=== PATIENT | male | born 1960 | race Caucasian/White ===

== ENCOUNTER 2018-06-12 10:08 | Emergency (ER) | payer MEDICARE, MEDICAID ==
[~2018-06-12] VITALS: Ht 180.3 cm; Wt 70.5 kg
[2018-06-12 10:20] VITALS: BP 117/88; Ht 180.3 cm; Wt 70.5 kg
[2018-06-12] MEDS ORDERED: LISINOPRIL10 MG PO (10:21)
== END 2018-06-12 16:00 ==
LOC: D.ER 10:08 → EDSEX 10:08 → D.ER 16:00
DX: N50.812 Left testicular pain (principal); N50.1 Vascular disorders of male genital organs; R10.30 Lower abdominal pain, unspecified; I10 Essential (primary) hypertension; M50.30 Other cervical disc degeneration, unspecified cervical region; F17.200 Nicotine dependence, unspecified, uncomplicated

== ENCOUNTER 2018-09-09 11:01 | Emergency (ER) | payer MEDICARE ==
[~2018-09-09] VITALS: Ht 180.3 cm; Wt 69.5 kg
[~2018-09-09 11:01] MED LIST: LISINOPRIL10 MG PO
[2018-09-09 11:07] VITALS: BP 141/89; Ht 180.3 cm; Wt 69.5 kg
== END 2018-09-09 12:27 | disposition left against medical advice (07) ==
LOC: D.ER 11:01
DX: M54.2 Cervicalgia (principal)

== ENCOUNTER 2018-09-11 11:24 | Emergency (ER) | payer OTHER, MEDICARE ==
[~2018-09-11] VITALS: Ht 180.3 cm; Wt 72.3 kg
[2018-09-11 11:42] VITALS: BP 122/87; Ht 180.3 cm; Wt 72.3 kg
== END 2018-09-11 17:00 | disposition left against medical advice (07) ==
LOC: D.ER 11:24
DX: M54.2 Cervicalgia (principal)

== ENCOUNTER 2018-10-26 11:19 | Inpatient (IN) | payer OTHER, MEDICAID ==
[~2018-10-26] VITALS: Ht 180.3 cm; Wt 68.2 kg
[2018-10-26 11:45] LABS: BASOPHILS 0.4 % (0-2); HEMATOCRIT 26.1 % (42.0-54.0); HEMOGLOBIN 8.4 g/dL (13.5-17.5); IMMATURE GRANULOCYTES 0.3 % (0-5); LYMPHOCYTES 10.6 % (15-50); MCH 29.7 pg (26.0-34.0); MCHC 32.2 g/dL (31.0-37.0); MCV 92.2 fL (80.0-100.0); MEAN PLATELET VOLUME 8.1 fL (7.4-10.4); MONOCYTES 7.6 % (2-11); NEUTROPHILS 80.1 % (40-80); PLATELET COUNT 782 10x3/uL (130-400); RBC 2.83 10x6/uL (4.20-6.10); RDW 13.9 % (11.5-14.5); WBC 7.7 10x3/uL (4.8-10.8)
--- NOTE | 2018-10-26 11:45 | NUR ---
HEMOCCULT= NEGATIVE. EDP, DENIS INFORMED.
--- NOTE | 2018-10-26 11:54 | NUR ---
PT DRINKING CONTRAST FOR CT SCAN
[2018-10-26 11:58] LABS: APPEARANCE CLEAR (CLEAR); BILIRUBIN NEGATIVE (NEGATIVE); COLOR STRAW (YELLOW); GLUCOSE NEGATIVE (NEGATIVE); KETONE NEGATIVE (NEGATIVE); NITRITE NEGATIVE (NEGATIVE); PROTEIN NEGATIVE (NEGATIVE); SPECIFIC GRAVITY 1.015 (1.005-1.020); UROBILINOGEN NORMAL (NORMAL)
[2018-10-26 12:01] LABS: ALBUMIN 2.9 g/dL (3.4-5.0); ALKALINE PHOSPHATASE 229 U/L (46-116); ALT (SGPT) 28 U/L (10-68); BILIRUBIN - TOTAL 0.32 mg/dL (0.2-1.3); CALC OSMOLALITY 264 mosm/kg (275-300); CALCIUM 9.2 mg/dL (8.5-10.1); CARBON DIOXIDE 29.1 mmol/L (21.0-32.0); CHLORIDE - SERUM 95 mmol/L (98-107); CREATININE - SERUM 0.6 mg/dL (0.6-1.3); GLUCOSE 175 mg/dL (74-106); LIPASE 60 U/L (73-393); POTASSIUM - SERUM 4.6 mmol/L (3.5-5.1); PROTEIN - SERUM 6.4 g/dL (6.4-8.2); SODIUM 130 mmol/L (136-145); UREA NITROGEN 12 mg/dL (7-18); eGFR NON AFRICAN AMERICAN > 90 mL/min (90-120)
--- NOTE | 2018-10-26 13:11 | NUR ---
PT TO RADIOLOGY AT THIS TIME.
--- NOTE | 2018-10-26 13:47 | NUR ---
PT RETURNED FROM RADIOLOGY AT THIS TIME.
[2018-10-26 13:55] VITALS: BP 153/90
[2018-10-26 15:39] LABS: APTT 27.7 SECONDS (22.8-39.4); INR 1.03 (0.85-1.17); PROTIME 10.7 SECONDS (11.6-15.0)
--- NOTE | 2018-10-26 15:45 | NUR ---
ASSISTED PT WITH URINAL; 1000 ML OF CLEAR, STRAW COLORED URINE AT THIS TIME
--- NOTE | 2018-10-26 15:45 | NUR ---
ATTEMPTED TO CALL REPORT; NURSE UNAVAILABLE AT THIS TIME.
--- NOTE | 2018-10-26 16:18 | NUR ---
REPORT CALLED TO BHAVNA CHERRY ON FLOOR, AND TOLD HER BLOOD IS READY IN BLOOD BANK. JO ANN ACKNOWLEDGES UNDERSTANDING.
[2018-10-26] MEDS ORDERED: NEURONTIN600 MG PO (17:50)
[2018-10-26 19:35] VITALS: BP 155/99; Ht 180.3 cm; Wt 68.2 kg
[2018-10-26 21:02] VITALS: BP 170/97
[2018-10-27 00:43] VITALS: BP 163/90
--- NOTE | 2018-10-27 04:07 | NUR ---
NO TELEMETRY TO PLACE ON PT.
--- NOTE | 2018-10-27 04:08 | NUR ---
UNIT 1 OF 2 OF BLOOD COMPLET WITH NO S/S OF REACTION. UNIT 2 RUNNING AT THIS TIME.
[2018-10-27 05:00] VITALS: BP 160/80
[2018-10-27 08:09] VITALS: BP 173/103
--- NOTE | 2018-10-27 09:27 | NUR ---
PT LYING IN BED, STATED HIS PAIN IS AT A 10 ADMINISTERED PRN PAIN MED, PT UPSET DUE TO PROTOCOL OF DILUTING AND STATED I DID NOT ADMINISTER TO HIM, HAD [place] KAY COME AND EXPLAIN TO PT PROTOCOL FOR PUSHING IV PAIN MEDS. CL IN REACH CONTINUE WITH PLAN OF CARE
[2018-10-27 10:24] LABS: BASOPHILS 0.5 % (0-2); EOSINOPHILS 1.2 % (0-7); HEMATOCRIT 32.3 % (42.0-54.0); HEMOGLOBIN 10.7 g/dL (13.5-17.5); IMMATURE GRANULOCYTES 0.2 % (0-5); LYMPHOCYTES 10.4 % (15-50); MCHC 33.1 g/dL (31.0-37.0); MCV 90.5 fL (80.0-100.0); MEAN PLATELET VOLUME 8.1 fL (7.4-10.4); MONOCYTES 12.7 % (2-11); PLATELET COUNT 726 10x3/uL (130-400); RBC 3.57 10x6/uL (4.20-6.10); RDW 13.8 % (11.5-14.5); WBC 6.6 10x3/uL (4.8-10.8)
[2018-10-27 10:43] LABS: ALBUMIN 2.9 g/dL (3.4-5.0); ALKALINE PHOSPHATASE 231 U/L (46-116); ALT (SGPT) 26 U/L (10-68); BILIRUBIN - TOTAL 0.36 mg/dL (0.2-1.3); CALC OSMOLALITY 269 mosm/kg (275-300); CALCIUM 9.3 mg/dL (8.5-10.1); CARBON DIOXIDE 29.6 mmol/L (21.0-32.0); CHLORIDE - SERUM 99 mmol/L (98-107); CREATININE - SERUM 0.6 mg/dL (0.6-1.3); GLUCOSE 142 mg/dL (74-106); POTASSIUM - SERUM 4.4 mmol/L (3.5-5.1); PROTEIN - SERUM 6.3 g/dL (6.4-8.2); SODIUM 135 mmol/L (136-145); UREA NITROGEN 8 mg/dL (7-18); eGFR NON AFRICAN AMERICAN > 90 mL/min (90-120)
--- NOTE | 2018-10-27 12:00 | NUR ---
PT REQUESTED PAIN MEDICATION STATED ACROSS ABDOMEN AND HIPS ARE HURTING REALLY BAD, ADMINISTERED PRN PAIN MEDS, CL IN EACH CONTINUE WITH PLAN OF CARE
[2018-10-27 12:09] VITALS: BP 177/107
--- NOTE | 2018-10-27 12:16 | NUR ---
RESTING QUIETLY IN BED. NO BM REPORTED FOR TODAY. DENIES NEEDS.
--- NOTE | 2018-10-27 15:33 | NUR ---
PT JUST HAD 1MG OF DILAUDID STATES IT DOES NOT WORK FOR HIM HE HAS BEEN CRYING AND YELLING OUT THE DOOR, ADVISED PT I WILL TALK WITH ASP NET PROGRAMMER ON FLOOR AND LET HER KNOW. PT STATED HE RECIEVED 40 OF OXY AND IV PAIN MED AT OTHER HOSPITAL, ADVISED PT IT IS UP TO DOCOTR AND DOCTOR IS AWARE OF PTS PAIN AND THAT YELLING IS NOT GOING TO GET IT TO HIM FASTER, CONTINUE WITH PLAN OF CARE
--- NOTE | 2018-10-27 17:01 | NUR ---
PT LYING IN BED ON CL, STATES HE IS IN EXCRUCIATING PAIN AND WANTS THE DOCTOR NOW. ADVISED PT DOCTOR IS ON THE FLOOR AND WILL MAKE HIS ROUNDS. PT HAD DILAUDID AT 1500, PERCOCET AT 1530 AND STATES STILL HURTS, WILL RELAY MESSAGE TO
--- NOTE | 2018-10-27 17:27 | NUR ---
PT IS YELLING DOWN HALLWAY FOR PAIN MEDICINE, ADVISED PT TO QUIET DOWN DUE TO OTHER PATIENTS AROUND HIM, ADVISED VP PATIENT OF PT'S BEHAVIOR, PER MACKENZIE HOOKER IS ON THE FLOOR AND MAKING ROUNDS, ADVISED PT
--- NOTE | 2018-10-27 17:52 | NUR ---
PT ON CL AGAIN FOR PAIN MEDS, SANG ADVISED PT WAITING ON XRAY RESULTS, UNABLE TO GIVE PT PAIN MEDS S IT IS TOO EARLY. CONTINUE WITH PLAN OF CARE
[2018-10-27 20:00] VITALS: BP 164/95
[2018-10-28 06:36] VITALS: BP 98/59
[2018-10-28 07:41] LABS: BASOPHILS 0.3 % (0-2); EOSINOPHILS 1.6 % (0-7); HEMATOCRIT 32.9 % (42.0-54.0); IMMATURE GRANULOCYTES 0.1 % (0-5); LYMPHOCYTES 15.7 % (15-50); MCH 30.2 pg (26.0-34.0); MCHC 33.4 g/dL (31.0-37.0); MCV 90.4 fL (80.0-100.0); MEAN PLATELET VOLUME 8.5 fL (7.4-10.4); MONOCYTES 14.1 % (2-11); NEUTROPHILS 68.2 % (40-80); PLATELET COUNT 700 10x3/uL (130-400); RBC 3.64 10x6/uL (4.20-6.10); RDW 14.2 % (11.5-14.5); WBC 6.8 10x3/uL (4.8-10.8)
[2018-10-28 07:56] LABS: ALBUMIN 2.9 g/dL (3.4-5.0); ALKALINE PHOSPHATASE 224 U/L (46-116); ALT (SGPT) 23 U/L (10-68); BILIRUBIN - TOTAL 0.29 mg/dL (0.2-1.3); CALC OSMOLALITY 269 mosm/kg (275-300); CALCIUM 9.6 mg/dL (8.5-10.1); CARBON DIOXIDE 29.2 mmol/L (21.0-32.0); CHLORIDE - SERUM 101 mmol/L (98-107); CREATININE - SERUM 0.6 mg/dL (0.6-1.3); GLUCOSE 101 mg/dL (74-106); MAGNESIUM - SERUM 1.8 mg/dL (1.8-2.4); POTASSIUM - SERUM 3.6 mmol/L (3.5-5.1); PROTEIN - SERUM 6.2 g/dL (6.4-8.2); SODIUM 136 mmol/L (136-145); UREA NITROGEN 7 mg/dL (7-18); eGFR NON AFRICAN AMERICAN > 90 mL/min (90-120)
[2018-10-28 08:24] VITALS: BP 154/85
[2018-10-28 12:49] VITALS: BP 160/95
[2018-10-28 16:08] VITALS: BP 138/83
--- NOTE | 2018-10-28 16:41 | MORECARE ---
CASE MANAGEMENT DISCHARGE SUMMARY PATIENT: FIDE ESPINOZA UNIT: [id number] ADM DATE: 10/26/18 AGE: 57 : 64 SEX: M ROOM/BED: D.2209 AUTHOR: AGUS BEJARANO PHYSICIAN: REFERRING PHYSICIAN: MC SMITH MD DATE OF SERVICE: 10/28/18 Discharge Plan Patient Name: FIDE ESPINOZA Facility: [facility]:[place] : 1960 Planned Disposition: Longterm Facility Anticipated Discharge Date: Discharge Date: Expected LOS: Initial Reviewer: [email or web address] Initial Review Date: 10/26/2018 Generated: 10/28/18 5:41 pm DCPIA - Discharge Planning Initial Assessment Updated by [id number]: Alka Sampson on 10/28/18 4:40 pm * Is the patient Alert and Oriented? Yes * How many steps to enter\exit or inside your home? * PCP TERRI GILL * [facility] * Preadmission Environment Homeless * ADLs Independent * Equipment Other Rolling Walker Wheelchair * Other Equipment GRABBER * Verbal permission to speak to the caregivers and representatives has been obtained from the patient. N/A * Community resources currently utilized None * Additional services required to return to the preadmission environment? Yes * Has this patient been hospitalized within the prior 30 days at any hospital? Yes Patient Name: FIDE ESPINOZA Page [id number] at 1641 All edits/amendments must be made on the electronic document DICTATION DATE: 10/28/181640 SILVER PLATER: ARNOLD 10/28/181640 RPT#: [id number] DC DATE: STATUS: ADM IN [address] [place] [address] END OF REPORT
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
[2018-10-28 20:00] VITALS: BP 166/91
--- NOTE | 2018-10-28 21:00 | NUR ---
PT SITTING UP IN BED, NO SIGNS OF DISTRESS. ALERT AND ORIENTED. IV RIGHT AC INFUSING NS @ 50. PT REQUESTED TO GET IN BEDSIDE CHAIR. WAS ABLE TO AMBULATE INDEPENDENTLY W/ STAND BY ASSIST. SCDS ON. PT STATES PAIN 8/10 IN LEFT LEG AND BACK. STATES IT DOES NOT GET BETTER THAN A 7. GAVE ICE PACKS. GAVE DILAUDID AND PERCOCET ORDERED. SEE MAR. NO OTHER NEEDS OR COMPLAINTS AT THIS TIME. CL IN REACH, WILL CONTINUE TO MONITOR
[2018-10-29 05:09] LABS: BASOPHILS 0.4 % (0-2); EOSINOPHILS 2.5 % (0-7); HEMATOCRIT 36.9 % (42.0-54.0); HEMOGLOBIN 12.2 g/dL (13.5-17.5); IMMATURE GRANULOCYTES 0.3 % (0-5); MCH 30.3 pg (26.0-34.0); MCHC 33.1 g/dL (31.0-37.0); MCV 91.8 fL (80.0-100.0); MEAN PLATELET VOLUME 8.4 fL (7.4-10.4); MONOCYTES 10.2 % (2-11); NEUTROPHILS 64.6 % (40-80); PLATELET COUNT 631 10x3/uL (130-400); RBC 4.02 10x6/uL (4.20-6.10); RDW 14.2 % (11.5-14.5); WBC 7.5 10x3/uL (4.8-10.8)
[2018-10-29 05:27] LABS: ALBUMIN 3.1 g/dL (3.4-5.0); ALKALINE PHOSPHATASE 248 U/L (46-116); ALT (SGPT) 23 U/L (10-68); BILIRUBIN - TOTAL 0.24 mg/dL (0.2-1.3); CALC OSMOLALITY 272 mosm/kg (275-300); CALCIUM 9.6 mg/dL (8.5-10.1); CARBON DIOXIDE 30.7 mmol/L (21.0-32.0); CHLORIDE - SERUM 98 mmol/L (98-107); CREATININE - SERUM 0.6 mg/dL (0.6-1.3); GLUCOSE 107 mg/dL (74-106); MAGNESIUM - SERUM 1.8 mg/dL (1.8-2.4); POTASSIUM - SERUM 3.6 mmol/L (3.5-5.1); PROTEIN - SERUM 6.8 g/dL (6.4-8.2); SODIUM 137 mmol/L (136-145); eGFR NON AFRICAN AMERICAN > 90 mL/min (90-120)
[2018-10-29 05:39] LABS: UREA NITROGEN 11 mg/dL (7-18)
[2018-10-29 06:14] VITALS: BP 167/98
[2018-10-29 07:25] LABS: PROTIME 12.7 SECONDS (11.6-15.0)
[2018-10-29 08:12] VITALS: BP 157/102
--- NOTE | 2018-10-29 09:00 | NUR ---
NUCLEAR WEAPONS MECHANICAL SPECIALIST COMPELTE. NO SIGNS OF DISTRESS. DENIES NEEDS AT THIS TIME
[2018-10-29 12:58] VITALS: BP 145/92
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
[2018-10-29 16:08] VITALS: BP 138/93
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
[2018-10-29 19:35] VITALS: BP 159/97
[2018-10-30] VITALS: BP 153/86
[2018-10-30 04:00] VITALS: BP 160/94
--- NOTE | 2018-10-30 05:00 | NUR ---
PT IN BED IN LOW FOWLERS POSITION. ALERT AND ORIENTED X4. RESPIRATIONS EVEN AND UNLABORED. VS STABLE AND AFEBRILE. NO VISUAL CUES OF DISTRESS NOTED. DENIES ANY OTHER NEEDS AT THIS TIME. BED LOW, SIDE RAILS UP X2. CALL LIGHT IN REACH. WILL CONTINUE TO MONITOR.
[2018-10-30 06:05] LABS: BASOPHILS 0.6 % (0-2); EOSINOPHILS 3.9 % (0-7); HEMATOCRIT 34.8 % (42.0-54.0); HEMOGLOBIN 11.6 g/dL (13.5-17.5); IMMATURE GRANULOCYTES 0.2 % (0-5); LYMPHOCYTES 15.4 % (15-50); MCH 30.1 pg (26.0-34.0); MCHC 33.3 g/dL (31.0-37.0); MCV 90.4 fL (80.0-100.0); MEAN PLATELET VOLUME 8.2 fL (7.4-10.4); MONOCYTES 11.2 % (2-11); NEUTROPHILS 68.7 % (40-80); PLATELET COUNT 579 10x3/uL (130-400); RBC 3.85 10x6/uL (4.20-6.10); RDW 14.1 % (11.5-14.5); WBC 8.5 10x3/uL (4.8-10.8)
[2018-10-30 06:30] LABS: ALKALINE PHOSPHATASE 229 U/L (46-116); ALT (SGPT) 22 U/L (10-68); BILIRUBIN - TOTAL 0.27 mg/dL (0.2-1.3); CALCIUM 9.3 mg/dL (8.5-10.1); CARBON DIOXIDE 28.7 mmol/L (21.0-32.0); CHLORIDE - SERUM 99 mmol/L (98-107); GLUCOSE 114 mg/dL (74-106); MAGNESIUM - SERUM 1.8 mg/dL (1.8-2.4); POTASSIUM - SERUM 4.1 mmol/L (3.5-5.1); PROTEIN - SERUM 6.5 g/dL (6.4-8.2); SODIUM 136 mmol/L (136-145)
[2018-10-30 06:35] LABS: CALC OSMOLALITY 274 mosm/kg (275-300); CREATININE - SERUM 0.8 mg/dL (0.6-1.3); UREA NITROGEN 18 mg/dL (7-18); eGFR NON AFRICAN AMERICAN > 90 mL/min (90-120)
[2018-10-30 09:00] VITALS: BP 180/101
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
[2018-10-30 12:42] VITALS: BP 155/89
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
--- NOTE | 2018-10-30 14:27 | NUR ---
NUTRITION F/U CHART REVIEWED. PT TOLERATING REG DIET, CONTINUES TO BE ASSESSED AT LOW NUTRITIONAL RISK. RD FOLLOWING
--- NOTE | 2018-10-30 17:10 | NUR ---
OT NOTE: PT COMPLETED EOB SITTING WITH SBA. PT ABLE TO SANDEEP BACK BRACE. PT COMPLETED BED MOB WITH SBA. PT COMPLETED HYGIENE TASK WITH SET UP. THANK YOU, SHELBY BHATT
[2018-10-30 19:52] VITALS: BP 147/88
[2018-10-31] VITALS: BP 170/104
[2018-10-31 04:00] VITALS: BP 154/101
[2018-10-31 05:20] LABS: BASOPHILS 0.4 % (0-2); EOSINOPHILS 6.4 % (0-7); HEMATOCRIT 38.4 % (42.0-54.0); HEMOGLOBIN 12.5 g/dL (13.5-17.5); IMMATURE GRANULOCYTES 0.4 % (0-5); LYMPHOCYTES 16.7 % (15-50); MCH 30.3 pg (26.0-34.0); MCHC 32.6 g/dL (31.0-37.0); MEAN PLATELET VOLUME 8.5 fL (7.4-10.4); MONOCYTES 11.8 % (2-11); NEUTROPHILS 64.3 % (40-80); PLATELET COUNT 591 10x3/uL (130-400); RBC 4.12 10x6/uL (4.20-6.10); RDW 14.3 % (11.5-14.5); WBC 7.2 10x3/uL (4.8-10.8)
[2018-10-31 05:22] LABS: MCV 93.2 fL (80.0-100.0)
[2018-10-31 05:41] LABS: ALBUMIN 3.3 g/dL (3.4-5.0); ALKALINE PHOSPHATASE 260 U/L (46-116); ALT (SGPT) 22 U/L (10-68); BILIRUBIN - TOTAL 0.19 mg/dL (0.2-1.3); CALC OSMOLALITY 282 mosm/kg (275-300); CARBON DIOXIDE 33.5 mmol/L (21.0-32.0); CHLORIDE - SERUM 100 mmol/L (98-107); GLUCOSE 117 mg/dL (74-106); MAGNESIUM - SERUM 2.1 mg/dL (1.8-2.4); POTASSIUM - SERUM 4.6 mmol/L (3.5-5.1); PROTEIN - SERUM 7.2 g/dL (6.4-8.2); SODIUM 141 mmol/L (136-145); UREA NITROGEN 16 mg/dL (7-18)
[2018-10-31 05:49] LABS: CREATININE - SERUM 0.5 mg/dL (0.6-1.3); eGFR NON AFRICAN AMERICAN > 90 mL/min (90-120)
--- NOTE | 2018-10-31 08:10 | NUR ---
PT SITTING UP IN CHAIR AT BEDSIDE. NO ACUTE DISTRESS NOTED. REPORTS PAIN 8/10 AT THIS TIME, REQUESTING PAIN MEDS. TSLO BRACE AT BEDSIDE FOR USE WHEN AMBULATING. DENIES NEEDS AT THIS TIME. CL WITHIN REACH. ENCOURAGED TO CALL WITH NEEDS. WILL CONTINUE TO MONITOR.
[2018-10-31] MEDS ORDERED: MIRALAX17 GM PO (16:50)
[2018-10-31] MEDS ORDERED: Percocet-10 PO (16:52)
--- NOTE | 2018-10-31 16:54 | MORECARE ---
CASE MANAGEMENT DISCHARGE SUMMARY PATIENT: FIDE ESPINOZA UNIT: [id number] ADM DATE: 10/26/18 AGE: 57 : 64 SEX: M ROOM/BED: D.2209 AUTHOR: CARLEEDOC PHYSICIAN: REFERRING PHYSICIAN: MC SMITH MD DATE OF SERVICE: 10/31/18 Discharge Plan Patient Name: FIDE ESPINOZA Facility: [facility]:[place] : 1960 Planned Disposition: Penitentiary Facility Anticipated Discharge Date: Discharge Date: Expected LOS: Initial Reviewer: [email or web address] Initial Review Date: 10/26/2018 Generated: 10/31/18 5:54 pm Comments DCP- Discharge Planning Updated by [email or web address]: Shauna Longoria on 10/31/18 3:[address] Patient Name: FIDE ESPINOZA Admission Status: ER Accout number: [id number] Admission Date: 10-26-2018 : 1960 Admission Diagnosis:PAIN IN LEFT HIP Attending: MC SMITH Current LOS: 5 Anticipated DC Date: Planned Disposition: Penitentiary Facility Primary Insurance: MEDICAID [place] Discharge Planning Comments: CM SPOKE WITH [facility], HE IS TOO HIGH FUNCTIONING FOR SNF THEREFORE DENIED. LUZ ALATORRE SPOKE WITH PATIENT AND HE IS TO BE DISCHARGED HOME AND A FRIEND IS GOING TO PICK HIM UP. CM WILL FOLLOW AND ASSIST NEEDED. Icing Coater: Shauna Longoria DCP- Discharge Planning Updated by [email or web address]: Alka Sampson on 10/30/18 12:[address] CONFIRMED WITH [facility] THAT THEY RECEIVED THE REFERRAL. AWAITING AUTH DCP- Discharge Planning Updated by [email or web address]: Alka Sampson on 10/30/18 10:[address] [facility] IS NOT IN NETWORK WITH [facility], REFERRAL SENT TO [facility] DCP- Discharge Planning Updated by [email or web address]: Alka Sampson on 10/30/18 9:[address] REFERRAL SENT TO [facility], SPOKE WITH CHERI AWAITING AUTH DCP- Discharge Planning Updated by [email or web address]: Alka Sampson on 10/28/18 3:[address] Patient Name: FIDE ESPINOZA Admission Status: ER Accout number: [id number] Admission Date: 10-26-2018 : 1960 Admission Diagnosis: Attending: MC SMITH Current LOS: 2 Anticipated DC Date: Planned Disposition: Penitentiary Facility Primary Insurance: MEDICAID [place] Discharge Planning Comments: CM met with patient to assess discharge planning needs. Patient stated that he is basically homeless. He was staying in the [facility] when he called the EMS. All of his stuff is still there. He stated that he has contacted them and they will be saving it for him. He was living with a friend, but is was unsafe with drugs. His son is in [place] and is trying to come into town for him, but not sure when that will happen. His hometown is [facility] and if he can get to talking he would like to go back there. He lost his job due to recent hospitalizations. He has a walker and a wheelchair and nebulizer. His walker is at his bedside and the other is at the motel. He would like to go to rehab at [place], I spoke with Clarita and she will have to get preaut. He has ALLWELL per patient. AALIYAH with [place]. CM will send referral when I get the OT and PT eval. CM will continue to follow and assist with DC planning Icing Coater: Alka Sampson DCPIA - Discharge Planning Initial Assessment Updated by [email or web address]: Alka Sampson on 10/28/18 4:40 pm * Is the patient Alert and Oriented? Yes * How many steps to enter\exit or inside your home? * PCP TERRI GILL * [facility] * Preadmission Environment Homeless * ADLs Independent * Equipment Other Rolling Walker Wheelchair * Other Equipment GRABBER * Verbal permission to speak to the caregivers and representatives has been obtained from the patient. N/A * Community resources currently utilized None * Additional services required to return to the preadmission environment? Yes * Has this patient been hospitalized within the prior 30 days at any hospital? Yes Last DP export: 10/30/18 12:40 p Patient Name: FIDE ESPINOZA Page 25180 at 9474 All edits/amendments must be made on the electronic document DICTATION DATE: 10/31/181653 PLUMBING HARDWARE ASSEMBLER: ARNOLD 10/31/181653 RPT#: [id number] DC DATE: STATUS: ADM IN [facility] [address] [place] [address] END OF REPORT
--- NOTE | 2018-10-31 19:55 | NUR ---
DC PAPERS AND INSTRUCTIONS GIVEN, QUESTIONS ANSWERED, FRIEND COMING TO HEAD ATHLETIC TRAINER/STRENGTH COACH, ROOM PACKED, TAKEN TO ER WITH BELONGINGS
--- NOTE | 2018-11-03 13:13 | MORECARE ---
CASE MANAGEMENT DISCHARGE SUMMARY PATIENT: FIDE ESPINOZA UNIT: [id number] ADM DATE: 10/26/18 AGE: 57 : 64 SEX: M ROOM/BED: D.2209 AUTHOR: AGUS BEJARANO PHYSICIAN: REFERRING PHYSICIAN: MC SMITH MD DATE OF SERVICE: 11/03/18 Discharge Plan Patient Name: FIDE ESPINOZA Facility: [facility]:[place] : 1960 Planned Disposition: Custodial Facility Anticipated Discharge Date: Discharge Date: 10/31/2018 Expected LOS: 0 Initial Reviewer: [email or web address] Initial Review Date: 10/26/2018 Generated: 11/03/18 2:13 pm Comments DCP- Discharge Planning Updated by [email or web address]: Shauna Longoria on 10/31/18 3:[address] Patient Name: FIDE ESPINOZA Admission Status: ER Accout number: [id number] Admission Date: 10-26-2018 : 1960 Admission Diagnosis:PAIN IN LEFT HIP Attending: MC SMITH Current LOS: 5 Anticipated DC Date: Planned Disposition: Custodial Facility Primary Insurance: MEDICAID [place] Discharge Planning Comments: CM SPOKE WITH [facility], HE IS TOO HIGH FUNCTIONING FOR SNF THEREFORE DENIED. LUZ ALATORRE SPOKE WITH PATIENT AND HE IS TO BE DISCHARGED HOME AND A FRIEND IS GOING TO PICK HIM UP. CM WILL FOLLOW AND ASSIST NEEDED. String Winding Machine Operator: Shauna Longoria DCP- Discharge Planning Updated by [email or web address]: Alka Sampson on 10/30/18 12:[address] CONFIRMED WITH [facility] THAT THEY RECEIVED THE REFERRAL. AWAITING AUTH DCP- Discharge Planning Updated by [email or web address]: Alka Sampson on 10/30/18 10:[address] [facility] IS NOT IN NETWORK WITH [facility], REFERRAL SENT TO [facility] DCP- Discharge Planning Updated by [email or web address]: Alka Sampson on 10/30/18 9:[address] REFERRAL SENT TO [facility], SPOKE WITH CHERI AWAITING AUTH DCP- Discharge Planning Updated by [email or web address]: Alka Sampson on 10/28/18 3:[address] Patient Name: FIDE ESPINOZA Admission Status: ER Accout number: [id number] Admission Date: 10-26-2018 : 1960 Admission Diagnosis: Attending: MC SMITH Current LOS: 2 Anticipated DC Date: Planned Disposition: Custodial Facility Primary Insurance: MEDICAID [place] Discharge Planning Comments: CM met with patient to assess discharge planning needs. Patient stated that he is basically homeless. He was staying in the [facility] when he called the EMS. All of his stuff is still there. He stated that he has contacted them and they will be saving it for him. He was living with a friend, but is was unsafe with drugs. His son is in [facility] and is trying to come into town for him, but not sure when that will happen. His hometown is [facility] and if he can get to talking he would like to go back there. He lost his job due to recent hospitalizations. He has a walker and a wheelchair and nebulizer. His walker is at his bedside and the other is at the motel. He would like to go to rehab at [place], I spoke with Clarita and she will have to get preaut. He has ALLWELL per patient. AALIYAH with [place]. CM will send referral when I get the OT and PT bryanna. CM will continue to follow and assist with DC planning String Winding Machine Operator: Alka Sampson DCPIA - Discharge Planning Initial Assessment Updated by [email or web address]: Alka Sampson on 10/28/18 4:40 pm * Is the patient Alert and Oriented? Yes * How many steps to enter\exit or inside your home? * PCP TERRI GILL * [facility] * Preadmission Environment Homeless * ADLs Independent * Equipment Other Rolling Walker Wheelchair * Other Equipment GRABBER * Verbal permission to speak to the caregivers and representatives has been obtained from the patient. N/A * Community resources currently utilized None * Additional services required to return to the preadmission environment? Yes * Has this patient been hospitalized within the prior 30 days at any hospital? Yes Last DP export: 10/31/18 3:54 p Patient Name: FIDE ESPINOZA Page 75825 at 1313 All edits/amendments must be made on the electronic document DICTATION DATE: 11/03/18 1312 FUSE CUTTER: ARNOLD 11/03/18 1312 RPT#: [id number] DC DATE:10/31/18 STATUS: DIS IN [facility] [address] [place] [address] END OF REPORT
== END 2018-10-31 19:58 | disposition home or self-care (01) | DRG 552 ==
LOC: D.ER 11:19 → D.EDHOLD 14:38 → D.MS 14:38
PROVIDERS: Emergency Medicine; Radiology Diagnostic Radiology; ADMIT Family Medicine
DX: S32.019A Unspecified fracture of first lumbar vertebra, initial encounter for closed fracture (principal); S32.592A Other specified fracture of left pubis, initial encounter for closed fracture; S32.591A Other specified fracture of right pubis, initial encounter for closed fracture; D62 Acute posthemorrhagic anemia; M54.10 Radiculopathy, site unspecified; M25.552 Pain in left hip; S72.002D Fracture of unspecified part of neck of left femur, subsequent encounter for closed fracture with routine healing; I10 Essential (primary) hypertension; K59.00 Constipation, unspecified

== ENCOUNTER 2019-01-02 18:05 | Emergency (ER) | payer OTHER, MEDICAID ==
[~2019-01-02 18:05] MED LIST changes: +MIRALAX17 GM PO; +NEURONTIN600 MG PO; +Percocet-10 PO
== END 2019-01-02 19:00 | disposition left against medical advice (07) ==
LOC: D.ER 18:05
DX: R20.2 Paresthesia of skin (principal)

== ENCOUNTER 2019-08-22 07:18 | Emergency (ER) | payer OTHER, MEDICAID ==
[~2019-08-22] VITALS: Ht 180.3 cm; Wt 74.5 kg
[2019-08-22 07:22] VITALS: Ht 180.3 cm; Wt 74.5 kg
[2019-08-22] MEDS ORDERED: PRINIVIL20 MG PO (07:26)
[2019-08-22] MEDS ORDERED: ZOLOFT50 MG PO (07:27)
[2019-08-22] MEDS ORDERED: MOBIC7.5 MG PO (07:27)
[2019-08-22] MEDS ORDERED: ZANAFLEX4 MG PO (07:28)
[2019-08-22] MEDS ORDERED: PERCOCET 7.5/321 TAB PO (09:08)
[2019-08-22 09:24] VITALS: BP 126/74
== END 2019-08-22 09:24 | disposition home or self-care (01) ==
LOC: D.ER 07:18
DX: S92.911A Unspecified fracture of right toe(s), initial encounter for closed fracture (principal); S83.91XA Sprain of unspecified site of right knee, initial encounter; S43.401A Unspecified sprain of right shoulder joint, initial encounter; I10 Essential (primary) hypertension; M54.2 Cervicalgia; V86.59XA Driver of other special all-terrain or other off-road motor vehicle injured in nontraffic accident, initial encounter; F17.210 Nicotine dependence, cigarettes, uncomplicated

== ENCOUNTER 2020-02-28 12:47 | Emergency (ER) | payer OTHER, MEDICAID ==
[~2020-02-28] VITALS: Ht 180.3 cm; Wt 68.2 kg
[~2020-02-28 12:47] MED LIST changes: +MOBIC7.5 MG PO; +PERCOCET 7.5/321 TAB PO; +PRINIVIL20 MG PO; +ZANAFLEX4 MG PO; +ZOLOFT50 MG PO
[2020-02-28 12:53] VITALS: Ht 180.3 cm; Wt 68.2 kg
[2020-02-28] MEDS ORDERED: VOLTAREN75 MG PO (14:08)
[2020-02-28] MEDS ORDERED: PREDNISONE20 MG PO (14:08)
[2020-02-28 14:31] VITALS: BP 138/98
== END 2020-02-28 14:32 | disposition home or self-care (01) ==
LOC: D.ER 12:47
DX: M25.562 Pain in left knee (principal); W19.XXXA Unspecified fall, initial encounter; Y93.9 Activity, unspecified; Y92.9 Unspecified place or not applicable; G89.29 Other chronic pain; M54.9 Dorsalgia, unspecified; I10 Essential (primary) hypertension